=== PATIENT | female | born 1955 | race Caucasian/White ===

== ENCOUNTER 2022-07-09 09:45 | Outpatient (CLI) | payer OTHER, SELFPAY ==
[2022-07-09 11:34] LABS: Albumin* 4.2 g/dL (3.3-5.0); Chloride* 107 mmol/L (96-114)
[2022-07-09 11:35] LABS: Potassium* 3.8 mmol/L (3.6-5.1); Sodium* 141 mmol/L (135-149)
[2022-07-09 11:37] LABS: Aspartate Amino Transferase* 38 U/L (12-35); Bilirubin Total* 0.6 mg/dL (0.1-1.5); Blood Urea Nitrogen* 13 mg/dL (7-30); Carbon Dioxide* 29 mmol/L (20-32); Cholesterol* 184 mg/dL (90-199); Creatinine* 0.7 mg/dL (0.5-1.5); Estimated Glomerular Filt Rate 97 ml/min; Total Protein* 6.8 g/dL (6.0-8.3)
[2022-07-09 11:38] LABS: Alanine Aminotransferase* 37 U/L (4-35); Alkaline Phosphatase* 86 U/L (40-150); Calcium* 9.3 mg/dL (8.4-10.6); Glucose* 77 mg/dL (60-115); HDL Cholesterol* 67 mg/dL (>=50); LDL Cholesterol Calculated 91 mg/dL (<100); Triglycerides* 132 mg/dL (40-149)
[2022-07-09 11:55] LABS: Vitamin D 25 Hydroxy* 50 ng/mL (30-80)
[2022-07-09 12:09] LABS: TSH With Reflex to FT4* 0.938 uIU/mL (0.270-4.200)
== END 2022-07-09 09:46 | disposition home or self-care (01) ==
PROVIDERS: PCP Family Medicine; Visit Provider Family Medicine
DX: Z01.419 Encounter for gynecological examination (general) (routine) without abnormal findings (principal); R31.9 Hematuria, unspecified; M81.0 Age-related osteoporosis without current pathological fracture; F32.A Depression, unspecified; F41.9 Anxiety disorder, unspecified; Z13.6 Encounter for screening for cardiovascular disorders
CPT/HCPCS: 80053; 80061; 82306; 84443; 87086

== ENCOUNTER 2023-03-23 12:40 | Outpatient (CLI) | payer MEDICARE, OTHER, SELFPAY ==
--- NOTE | 2023-03-23 13:00 | CRLHL7_ITS ---
For Patients: As a result of the Century Cures Act, medical imaging exams and procedure reports are released immediately into your electronic medical record. You may view this report before your referring provider. If you have questions, please contact your health care provider. INDICATION: Left chest pain, elevated D-dimer COMPARISON: Same-day chest radiograph. TECHNIQUE: CT angiogram chest with contrast, pulmonary embolism protocol. Multiplanar axial, coronal, and sagittal reformats are included. MIP images to improve detection of pulmonary emboli are included. Intravenous contrast: 95 mL Isovue 370 FINDINGS: PE: Well-timed contrast bolus. No pulmonary emboli. Normal caliber main pulmonary artery. Normal sized right heart chambers. No reflux of contrast below the diaphragm. Heart and great vessels: No pericardial effusion. Normal cardiac chamber size. Few atherosclerotic plaques. No aortic aneurysm. Lungs: Expiratory phase imaging. Calcified nodule left upper lobe. Small subsegmental focus of atelectasis in the medial segment of the right middle lobe.. Diffuse ground-glass opacifications probably due expiratory phase imaging. Pleura: No pleural effusion. No pneumothorax. Airway: Normal tracheobronchial tree. Lymph nodes: Coarsely calcified mediastinal lymph nodes.. Mediastinum: No pneumomediastinum. Bones: No fractures. No focal bone lesions. Normal for age. Chest wall: Normal. No masses. Upper abdomen: Normal. IMPRESSION: 1. No pulmonary embolus. 2. No CT explanation for the patient`s left-sided chest pain. Please note that all CT scans at this facility use dose modulation, iterative reconstruction, and/or weight-based dosing when appropriate to reduce radiation dose to as low as reasonably achievable. Dictated by Corrine Quick MD @ 03/23/2023 2:12:41 PM (Electronically Signed)
== END 2023-03-23 12:41 | disposition home or self-care (01) ==
PROVIDERS: PCP Family Medicine; Visit Provider Family Medicine
DX: R07.9 Chest pain, unspecified (principal); R79.89 Other specified abnormal findings of blood chemistry; R93.89 Abnormal findings on diagnostic imaging of other specified body structures
CPT/HCPCS: 71275; 80053; 80061; 85379; Q9967

== ENCOUNTER 2023-10-19 08:00 | Outpatient (CLI) | payer MEDICARE, OTHER, SELFPAY | END 2023-10-19 08:01 | disposition home or self-care (01) | LOC: NFLDREF 11-08 10:20 | PROVIDERS: PCP Family Medicine; Referring Provider Family Medicine; Visit Provider Family Medicine | DX: E78.5 Hyperlipidemia, unspecified (principal); M85.80 Other specified disorders of bone density and structure, unspecified site; Z13.9 Encounter for screening, unspecified | CPT/HCPCS: 80053; 80061 ==

== ENCOUNTER 2024-01-12 14:32 | Outpatient (CLI) | payer MEDICARE, OTHER, SELFPAY ==
--- NOTE | 2024-01-12 14:30 | CRLHL7_ITS ---
For Patients: As a result of the Century Cures Act, medical imaging exams and procedure reports are released immediately into your electronic medical record. You may view this report before your referring provider. If you have questions, please contact your health care provider. DXA BONE MINERAL DENSITY STUDY Reason for exam: Osteoporosis. Current height (in): 64. Weight (lb): 135. Menopause age: 52. Ethnicity: White. 1. Have you had a previous hip or vertebral fracture? No. 2. Have you had any fractures during your adult life which did not result from significant trauma (e.g., auto accident)? No. 3. Did either of your parents have a hip fracture? Yes. 4. Do you smoke? No. 5. Have you ever taken Glucocorticoids? No. 6. Do you have rheumatoid arthritis? No. 7. Do you have secondary osteoporosis? No. 8. Do you drink 3 or more alcoholic drinks per day? No. 9. Are you being treated for osteoporosis? No. 10. Have you ever taken any of the following medications: Actonel, Evista, Fosamax, Miacalcin, Reclast, Boniva, Forteo, HRT (i.e. estrogen/hormone therapy), Protelos, Prolia, Vitamin D, Calcium, other ??? please specify. ANSWER: Yes, vitamin D and calcium. 11. Do you have any of the following medical conditions: Anorexia or bulimia, asthma or emphysema, end stage renal disease, hyperparathyroidism, any seizure disorders, cancer, inflammatory bowel diseases, hysterectomy, other ??? please specify. ANSWER: No. 12. What was your maximum height (inches)? 64. 13. Do you perform weight bearing exercise regularly? Yes. 14. Do you regularly consume dairy products? Yes. 15. Do you drink caffeinated beverages? Yes. 16. At what age did your period start? 16. 17. Are you premenopausal? No. 18. How many full term pregnancies have you had? 2. 19. Have you ever missed your period for more than 6 months in a row (not including or menopause)? Not provided. TECHNIQUE: Bone mineral density study was performed using the [employer]. FINDINGS: The results of the study expressed as bone mineral density (BMD) are as follows: Lumbar spine L1 to L3: BMD: 0.691 g/cm2. T-score: -3.0. Z-score: -1.2. Neck Left: BMD: 0.592 g/cm2. T-score: -2.3. Z-score: -0.7. Right: BMD: 0.623 g/cm2. T-score: -2.0. Z-score: -0.5. Total Left: BMD: 0.704 g/cm2. T-score: -2.0. Z-score: -0.7. Right: BMD: 0.711 g/cm2. T-score: -1.9. Z-score: -0.6. IMPRESSION: Osteoporosis. Hollis Snyder M.D. Diagnostic Radiologist [email or web address] BECKIE/demi / bM/Dictated by: Hollis Snyder MD @ 01/13/2024 10:08:00 AM (Electronically Signed)
--- NOTE | 2024-01-12 15:00 | CRLHL7_ITS ---
For Patients: As a result of the Century Cures Act, medical imaging exams and procedure reports are released immediately into your electronic medical record. You may view this report before your referring provider. If you have questions, please contact your health care provider. BILATERAL SCREENING MAMMOGRAM WITH COMPUTER-AIDED DETECTION AND TOMOSYNTHESIS TECHNIQUE: CC and MLO views were obtained. These mammographic images have been obtained using full-field digital technique. These mammographic images were interpreted with the benefit of computer-aided detection. Breast Tomosynthesis was used in this interpretation. COMPARISON FILM: 05/12/21, 03/15/19, 10/08/13. FINDINGS: The breasts are heterogeneously dense, which may obscure small masses. IMPRESSION: There is no radiographic evidence for malignancy. ASSESSMENT: BI-RADS Category 1: Negative RECOMMENDATION: Routine screening mammogram in 1 year. A lay language report of this examination will be provided to the patient. Hollis Snyder M.D. Diagnostic Radiologist [email or web address] SP/Dictated by: Hollis Snyder MD @ 01/13/2024 9:47:00 AM (Electronically Signed)
== END 2024-01-12 14:33 | disposition home or self-care (01) ==
LOC: RAD 14:33
PROVIDERS: PCP Family Medicine; Visit Provider Family Medicine
DX: Z12.31 Encounter for screening mammogram for malignant neoplasm of breast (principal); R92.2 Inconclusive mammogram; M81.0 Age-related osteoporosis without current pathological fracture; Z78.0 Asymptomatic menopausal state
CPT/HCPCS: 77063; 77067; 77080

== ENCOUNTER 2024-05-04 15:36 | Outpatient (CLI) | payer MEDICARE, OTHER, SELFPAY ==
--- NOTE | 2024-05-04 15:30 | CRLHL7_ITS ---
For Patients: As a result of the 21st Century Cures Act, medical imaging exams and procedure reports are released immediately into your electronic medical record. You may view this report before your referring provider. If you have questions, please contact your health care provider. CLINICAL INDICATION: Right knee pain. COMPARISON STUDIES: Radiographs 04/25/2024. TECHNICAL: Noncontrast MRI of the right knee. 1.5 parveen MRI scanner. Axial, sagittal and coronal T1, PD, PD FS, T2 FS and STIR complex tearing of the posterior horn of the medial meniscus images. FINDINGS: MEDIAL COMPARTMENT: Medial Meniscus: Complex tearing of the posterior horn of the medial meniscus as seen on sagittal T2 fat-sat images number 19 through 22 of series 8. Meniscal tear extends towards the posterior horn root of the meniscus. Associated loss of medial meniscal hoop stress with medial extrusion of the medial meniscal body as seen on coronal STIR image number 18 of series 5. Chondrocalcinosis of the meniscus is noted radiographically. Articular Cartilage: Subchondral fracture involves the central to medial aspect medial tibial plateau spanning a 19 millimeter anterior/posterior by 12 millimeter medial/lateral extent. There is prominent associated bone marrow edema. Slight concavity of the subchondral bone plate. Mild medial tibial plateau articular cartilage wear (grade 2). Small area of high-grade chondromalacia involves the posterior medial femoral condyle on sagittal T2 fat-sat image number 24 series 8 (grade 3). There is subchondral bone marrow edema involving the medial femoral condyle posteriorly. LATERAL COMPARTMENT: Lateral Meniscus: Chondrocalcinosis is noted involving the meniscus radiographically. No discrete area of lateral meniscal tearing. Articular Cartilage: Maintained. PATELLOFEMORAL COMPARTMENT: Articular Cartilage: Grade 4 chondromalacia within the trochlea with subchondral cystic change and bone marrow edema. High-grade cartilage wear of the patella (grade 3). LIGAMENTS: Anterior Cruciate Ligament: Intact. Posterior Cruciate Ligament: Intact. MEDIAL COLLATERAL LIGAMENT AND POSTEROMEDIAL CORNER COMPLEX: Medial Collateral Ligament: Chronic thickening of the proximal MCL with periligamentous edema. Medial Head of the Gastrocnemius and Semimembranosus Tendons: Normal. LATERAL COLLATERAL LIGAMENT COMPLEX AND POSTEROLATERAL CORNER COMPLEX: Fibular Collateral Ligament: Normal. Distal Biceps Femoris Tendon Complex: Normal. Iliotibial Band: Normal. Popliteus Tendon: Normal. Posterolateral Corner Capsule: Normal. EXTENSOR MECHANISM: Distal Quadriceps Tendon: Normal. Patellar Tendon: Normal. Medial Patellar Retinaculum and Medial Patellofemoral Ligament: Normal. Lateral Patellar Retinaculum: Normal. Normal patellar alignment. No patella tucker. Normal trochlear depth. Normal lateral trochlear inclination. JOINT SPACE AND CAPSULE: Moderate joint effusion with synovitis. BONES AND SOFT TISSUES: As above, there is subchondral fracture of the medial tibial plateau. Prominent proximal tibial bone marrow edema.5.5 x 3 x 2 centimeter popliteal cyst.Areas of subcutaneous edema. IMPRESSION: 1. Complex medial meniscal tear with loss of meniscal hoop stress, right knee. Underlying chondrocalcinosis. 2. Subchondral fracture of the medial tibial plateau with slight concavity of the subchondral bone plate and prominent associated bone marrow edema. 3. Degenerative arthrosis of the right knee with medial and patellofemoral compartment articular cartilage wear. 4. Moderate joint effusion with synovitis. 5. Chronic thickening of the proximal MCL with periligamentous edema. 6. Popliteal cyst. Dictated by Benigno Garcia MD @ 05/07/2024 8:26:05 AM (Electronically Signed)
--- OUTSIDE RECORDS SUMMARY | 2024-05-04 15:42 | XMS_ITS | Clinical Summary ---
Demographics Address [address] [place] [address] Home Phone Mobile Phone Preferred Language Malagasy Marital Status Unknown Sabianist Affiliation No Tenriism Race White Ethnic Group Not or Lati no Author Organization [facility] Address [place], [place] [address] Care Team Providers Care Slash Trimmer Name Role Phone Pcp, No Primary Care Provider Unavailabl e Allergies No known active allergies Medications Medication Sig Dispensed Refills Start Date End Date Status FLUoxetine (PROZAC) 20 mg capsule 1 capsule. Take 1 tab by mouth once daily. 30 capsule 0 11/25/2010 Active estradioL (VAGIFEM) 10 mcg tab vaginal tablet 03/12/2021 Active durable medical equipment (DME)Indications:Bun ion, left AIR SELECT, SHORT, MEDIUM, REF: 01ES-M 1 Each 05/06/2021 Active cholecalciferol (VITAMIN D3) 1,000 unit capsule Take 1 Capsule (1,000 units) by mouth once daily. 0 05/20/2021 Active naproxen (NAPROSYN) 500 mg tabletIndications:In jury of right knee, initial encounter,Acute pain of right knee TAKE 1 TABLET(500 MG) BY MOUTH TWICE DAILY WITH MEALS 60 Tablet 04/02/2024 Active Encounters Date Type Department Care Team Description 03/29/2024 Refill [facility] [address] [place] [address] Airam Aguirre PA Refill Request (Naproxen) 03/13/2024 Telephone [facility] [address] [place] [address] Airam Aguirre PA Appointment 03/13/2024 Nurse Triage [facility] [address] [place] [address] Pcp, No Knee Pain/problem 03/02/2024 2:45 PM CDT Ancillary Procedure [facility] [address] [place] [address] 03/02/2024 2:10 PM CDT Office Visit [facility] [address] [place] [address] Airam Aguirre PA Occ Med (Right knee popped while chasing a child-02/22/24) 03/02/2024 Travel 03/02/2024 Nurse Triage [facility] [address] [place] [address] Pcp, No Knee Injury 02/28/2024 Nurse Triage [facility] Nurse Triage Pcp, No Knee Injury from Last 3 Months Immunizations Name Administration Dates Next Due Influenza, IIV4 03/20/2021 Influenza, IIV4 (=>6mos) MDV 03/01/2020,03/08/20 19 Tdap 03/20/2021 Zoster (Shingrix-RZV, recombinant) 01/04/2023, Family History Medical History Relation Name Comments Cancer-prostate Father Alcohol/Drug Mother Psychiatric illness Mother depressi on Relation Name Status Comments Father Alive Mother Alive Social History Tobacco Use Types Packs/Day Years Used Date Smoking Tobacco: Never Smokeless Tobacco: Never Tobacco Cessation:Counseling Given: Yes Alcohol Use Standard Drinks/Week Comments Yes 0 (1 standard drink = 0.6 oz pur e alcohol) couple drinks per month Sex and Gender Information Value Date Recorded Sex Assigned at Not on file Gender Identity Not on file Sexual Orientation Not on file Obstetrics History Last Filed Vital Signs Vital Sign Reading Time Taken Comments Blood Pressure 127/85 03/02/2024 2:21 PM CDT Pulse 80 03/02/2024 2:21 PM CDT Temperature 36.6 C (97.9 F) 07/01/2021 8:02 AM M[employer]IST Respiratory Rate 18 11/25/2010 8:34 AM CDT Oxygen Saturation 98% 03/02/2024 2:21 PM CDT Inhaled Oxygen Concentration - - Weight 62.6 kg (138 lb) 03/02/2024 2:21 PM CDT Height - - Body Mass Index - - Plan of Treatment Health Maintenance Due Date Last Done Comments Depression screening for age 12+ 1969 BMI (ht and wt on same day) for age 18+ 09/15/1975 Hepatitis C screening for age 18-79 09/15/1975 Colonoscopy through age 75 2002 Lipids for age 45-75 2002 Mammogram for age 45-75 2002 DEXA/DXA scan for age 65+ 2022 Pneumococcal series for age 65+ (1 of 1 - PCV) 2022 COVID-19 vaccine series (3 - season) 2024 07/26/2020, 07/05/2020 Influenza for age 65+ 01/29/2024 03/20/2021 , 03/01/2020, 03/08/2019 Tetanus booster 03/20/2031 03/20/2021 Tdap Completed 03/20/2021 Zoster (shingles) series for age 50+ Completed 12/2022, 07/09/2022 Procedures Procedure Name Priority Date/Time Associated Diagnosis Comments XR KNEE WB 1 VIEW AP BILATERAL AND 1 VIEW RIGHT Routine 03/02/2024 2:59 PM CDT Injury of right knee, initial encounter Acute pain of right knee from Last 3 Months Results * XR KNEE WB 1 VIEW AP BILATERAL AND 1 VIEW RIGHT (03/02/2024 2:59 PM CDT) Anatomical Region Laterality Modality KNEES, KNEE R Computed Radiogr aphy 03/04/2024 9:52 PM CDT Narrative 03/04/2024 9:52 PM CDT For Patients: As a result of the Cures Act, medical imaging exams and procedure reports are released immediately into your electronic medical record. You may view this report before your referring provider. If you have questions, please contact your health care provider. Indication: Knee pain Technique: AP standing both knees and standing lateral view right knee. Comparison: None Findings: Medial compartment narrowing bilaterally. Chondrocalcinosis of the menisci. No fracture. Mild patellofemoral spurring. Osteopenia. No synovitis. Impression: Mild degenerative joint disease and chondrocalcinosis. Dictated by Hollis Snyder MD @ 03/04/2024 9:52:29 PM (Electronically Signed) Procedure Note Hollis Snyder MD - 03/04/2024 For Patients: As a result of the Cures Act, medical imagingexams and procedure reports are released immediately into your electronicmedical record. You may view this report before your referring provider.If you have questions, please contact your health care provider. Indication: Knee pain Technique: AP standing both knees and standing lateral view right knee. Comparison: None Findings: Medial compartment narrowing bilaterally. Chondrocalcinosis of themenisci. No fracture. Mild patellofemoral spurring. Osteopenia. Nosynovitis. Impression: Mild degenerative joint disease and chondrocalcinosis. Dictated by Hollis Snyder MD @ 03/04/2024 9:52:29 PM (Electronically Signed) [facility] from Last 3 Months Care Teams Slash Trimmer Relationship Specialty Start Date End Date Pcp, No . PCP - General 11/18/10
== END 2024-05-04 15:37 | disposition home or self-care (01) ==
LOC: MRI 15:39
PROVIDERS: PCP Family Medicine; Visit Provider Family Medicine
DX: M25.561 Pain in right knee (principal); S83.231A Complex tear of medial meniscus, current injury, right knee, initial encounter; S82.141A Displaced bicondylar fracture of right tibia, initial encounter for closed fracture; M17.11 Unilateral primary osteoarthritis, right knee; M25.461 Effusion, right knee; M71.21 Synovial cyst of popliteal space [Baker], right knee; S89.90XA Unspecified injury of unspecified lower leg, initial encounter
CPT/HCPCS: 73721

== ENCOUNTER 2024-12-11 08:26 | Outpatient (CLI) | payer MEDICARE, OTHER, SELFPAY | END 2024-12-11 08:27 | disposition home or self-care (01) | LOC: NFLDREF 12-13 13:03 | PROVIDERS: PCP Family Medicine; Referring Provider Family Medicine; Visit Provider Family Medicine | DX: E78.5 Hyperlipidemia, unspecified (principal); M85.80 Other specified disorders of bone density and structure, unspecified site; M81.0 Age-related osteoporosis without current pathological fracture | CPT/HCPCS: 80053; 80061; 82306 ==

== ENCOUNTER 2025-04-15 14:50 | Outpatient (CLI) | payer MEDICARE, OTHER, SELFPAY ==
--- NOTE | 2025-04-15 15:20 | CRLHL7_ITS ---
For Patients: As a result of the Century Cures Act, medical imaging exams and procedure reports are released immediately into your electronic medical record. You may view this report before your referring provider. If you have questions, please contact your health care provider. INDICATION: BILATERAL SCREENING MAMMOGRAM, ASYMPTOMATIC 69 Y/O FEMALE COMPARISON: 01/12/2024, 05/12/2021, 03/15/2019 TECHNIQUE: Digital mammogram in CC and MLO projections including computer-aided detection (CAD) and tomosynthesis. BREAST COMPOSITION: The breasts are heterogeneously dense, which may obscure small masses. FINDINGS: No suspicious findings. ASSESSMENT: BI-RADS 1 Negative RECOMMENDATION: Annual screening mammogram. A lay language report of this examination will be provided to the patient. Dictated by: Hollis Snyder MD @ 04/16/2025 09:45:23 (Electronically Signed)
== END 2025-04-15 14:51 | disposition home or self-care (01) ==
LOC: MAMMO 14:50
PROVIDERS: PCP Family Medicine; Visit Provider Family Medicine
DX: Z12.31 Encounter for screening mammogram for malignant neoplasm of breast (principal)
CPT/HCPCS: 77063; 77067